=== PATIENT | male | born 1950 | race Caucasian/White ===

== ENCOUNTER 2017-05-29 12:43 | Emergency (ER) | payer OTHER, MEDICAID ==
[~2017-05-29] VITALS: Ht 177.8 cm; Wt 83.5 kg
[2017-05-29 12:43] VITALS: BP 144/78
== END 2017-05-29 16:12 | disposition home or self-care (01) ==
LOC: ER 12:43
DX: S76.012A Strain of muscle, fascia and tendon of left hip, initial encounter (principal); S29.9XXA Unspecified injury of thorax, initial encounter; Z88.2 Allergy status to sulfonamides; Z88.6 Allergy status to analgesic agent; W01.0XXA Fall on same level from slipping, tripping and stumbling without subsequent striking against object, initial encounter; Y93.89 Activity, other specified; Y92.89 Other specified places as the place of occurrence of the external cause; Y99.8 Other external cause status
CPT/HCPCS: 71101; 73502; 93005